=== PATIENT | female | born 1950 | race African-American/Black ===

== ENCOUNTER 2016-06-28 11:42 | Emergency (ER) | payer MEDICARE, OTHER ==
[2016-06-28 13:07] LABS: BASOPHIL 0.3 % (0-2); EOSINOPHIL 6.5 % (0-5); HCT 41.2 % (37.0-47.0); HGB 13.4 g/dl (12.5-16.0); LYMPHOCYTE 29.4 % (15-48); MCH 28.3 pg (25.0-31.0); MCHC 32.5 g/dL (32.0-36.0); MCV 86.9 fL (78.0-100.0); MONOCYTE 4.8 % (0-12); MPV 10.4 fL (6.0-9.5); PLT 354 K/uL (150-400); RBC 4.74 M/uL (4.20-5.40); RDW 16.3 % (11.5-14.0); WBC 6.3 K/uL (4.0-10.5)
[2016-06-28 13:20] LABS: ALBUMIN 4.6 g/dL (3.4-4.8); BILIRUBIN - TOTAL 0.2 mg/dL (0.1-1.0); CREATININE 0.8 mg/dL (0.5-1.0); GLOBULIN (CALCULATION) 2.5 g/dL (2.2-4.2); POTASSIUM 4.4 mmol/L (3.5-5.1); TOTAL PROTEIN 7.1 g/dL (6.4-8.3)
[2016-06-28 13:21] LABS: LACTIC ACID 0.9 mmol/L (0.5-2.2)
== END 2016-06-28 15:04 | disposition home or self-care (01) ==
LOC: FER 11:42
PROVIDERS: Internal Medicine
DX: J44.0 Chronic obstructive pulmonary disease with (acute) lower respiratory infection (principal); J20.9 Acute bronchitis, unspecified; J44.1 Chronic obstructive pulmonary disease with (acute) exacerbation; S39.012A Strain of muscle, fascia and tendon of lower back, initial encounter; F17.200 Nicotine dependence, unspecified, uncomplicated
CPT/HCPCS: 36415; 71020; 72100; 80053; 83605; 84484; 85025; 87040; 93005; 94640

== ENCOUNTER 2016-08-25 10:05 | Emergency (ER) | payer MEDICARE, OTHER ==
[2016-08-25 10:38] LABS: BASOPHIL 0.2 % (0-2); EOSINOPHIL 2.9 % (0-5); HCT 39.8 % (37.0-47.0); HGB 12.9 g/dl (12.5-16.0); LYMPHOCYTE 19.8 % (15-48); MCH 27.4 pg (25.0-31.0); MCHC 32.4 g/dL (32.0-36.0); MCV 84.5 fL (78.0-100.0); MONOCYTE 9.7 % (0-12); MPV 9.9 fL (6.0-9.5); NEUTROPHIL 67.4 % (41-80); PLT 418 K/uL (150-400); RBC 4.71 M/uL (4.20-5.40); WBC 9.2 K/uL (4.0-10.5)
[2016-08-25 10:49] LABS: ALBUMIN 3.8 g/dL (3.4-4.8); BILIRUBIN - TOTAL 0.3 mg/dL (0.1-1.0); CREATININE 1.1 mg/dL (0.5-1.0); POTASSIUM 3.8 mmol/L (3.5-5.1); PRO-BNP 30 pg/mL (0-125); TOTAL PROTEIN 6.8 g/dL (6.4-8.3); TROPONIN T < 0.010 ng/mL
== END 2016-08-25 17:10 | disposition other institution (70) ==
LOC: FER 10:05
PROVIDERS: Emergency Medicine
DX: R18.8 Other ascites (principal); N83.9 Noninflammatory disorder of ovary, fallopian tube and broad ligament, unspecified; R16.2 Hepatomegaly with splenomegaly, not elsewhere classified; R05 Cough; J44.9 Chronic obstructive pulmonary disease, unspecified; Z79.51 Long term (current) use of inhaled steroids
CPT/HCPCS: 36415; 71020; 76830; 80053; 83880; 84484; 85025; 85379; 86304; 93005; 94640; 94664; J2270; Q9967

== ENCOUNTER 2016-09-17 14:31 | Emergency (ER) | payer MEDICARE, OTHER ==
[2016-09-17 15:07] LABS: BASOPHIL 0.2 % (0-2); EOSINOPHIL 1.1 % (0-5); HCT 35.7 % (37.0-47.0); HGB 11.4 g/dl (12.5-16.0); MCH 26.5 pg (25.0-31.0); MCHC 31.9 g/dL (32.0-36.0); MONOCYTE 8.1 % (0-12); MPV 9.2 fL (6.0-9.5); NEUTROPHIL 75.6 % (41-80); PLT 546 K/uL (150-400); RDW 17.8 % (11.5-14.0); WBC 6.2 K/uL (4.0-10.5)
[2016-09-17 15:17] LABS: BILIRUBIN - TOTAL 0.2 mg/dL (0.1-1.0); GLOBULIN (CALCULATION) 4.5 g/dL (2.2-4.2); POTASSIUM 5.8 mmol/L (3.5-5.1); TOTAL PROTEIN 7.5 g/dL (6.4-8.3)
[2016-09-17 15:19] LABS: TROPONIN T < 0.010 ng/mL
[2016-09-17 15:22] LABS: PRO-BNP 634 pg/mL (0-125)
[2016-09-17 18:15] LABS: BILIRUBIN 2+ mg/dL (NEGATIVE); BLOOD TRACE-INTACT Ery/uL (NEGATIVE); CLARITY CLEAR (CLEAR); COLOR YELLOW (YELLOW); GLUCOSE (U) NORMAL (NORMAL); KETONE (U) 2+ (MODERATE) mg/dL (NEGATIVE); LEUKOCYTES NEGATIVE Leu/uL (NEGATIVE); NITRITE NEGATIVE (NEGATIVE); PROTEIN 1+ mg/dL (NEGATIVE); SPECIFIC GRAVITY 1.025 (1.001-1.030); UROBILINOGEN 0.2 mg/dL (0.2-1.0); pH 5.5 (5.0-9.0)
[2016-09-17 18:21] LABS: BACTERIA TRACE
== END 2016-09-17 20:22 | disposition other institution (70) ==
LOC: FER 14:31
PROVIDERS: Nurse Practitioner
DX: C56.9 Malignant neoplasm of unspecified ovary (principal); N17.9 Acute kidney failure, unspecified; E87.5 Hyperkalemia; R19.7 Diarrhea, unspecified; I10 Essential (primary) hypertension; E11.9 Type 2 diabetes mellitus without complications; J45.909 Unspecified asthma, uncomplicated; J44.9 Chronic obstructive pulmonary disease, unspecified; R82.90 Unspecified abnormal findings in urine; Z90.49 Acquired absence of other specified parts of digestive tract; Z98.890 Other specified postprocedural states; Z87.891 Personal history of nicotine dependence
CPT/HCPCS: 36415; 36600; 71010; 80053; 81001; 82803; 83605; 83880; 84484; 85025; 87040; 87088; 93005; 94640; J2270; J2405

== ENCOUNTER 2016-10-01 08:46 | Emergency (ER) | payer MEDICARE, OTHER | END 2016-10-01 12:05 | disposition home or self-care (01) | LOC: FER 08:46 | DX: E11.649 Type 2 diabetes mellitus with hypoglycemia without coma (principal); J44.9 Chronic obstructive pulmonary disease, unspecified; C56.9 Malignant neoplasm of unspecified ovary; Z79.4 Long term (current) use of insulin; Z79.84 Long term (current) use of oral hypoglycemic drugs; Z79.899 Other long term (current) drug therapy; Z99.81 Dependence on supplemental oxygen | CPT/HCPCS: 94640 ==